=== PATIENT | female | born 1955 | race Caucasian/White ===

== ENCOUNTER 2016-12-24 09:16 | Day surgery (SDC) | payer MEDICAID ==
[~2016-12-24 09:16] MED LIST: Lactated Ringers 1,000 ML IV SCH; Sodium Chloride 0.9% 10 ML Syringe FLUSH PRN
[2016-12-24] MEDS ORDERED: fentaNYL 100 MCG/2 ML SDV ONE (10:12)
[2016-12-24] MEDS ORDERED: Midazolam 1 MG/ML 2 ML SDV ONE (10:13)
[2016-12-24] MEDS ORDERED: Propofol 200 MG/20 ML SDV ONE ×2 (10:13→11:51)
[2016-12-24 12:59] VITALS: BP 122/71
--- NOTE | 2016-12-24 14:48 | OR ---
DATE OF SURGERY: 12/24/2016. REFERRING PROVIDER: Rolo Acosta M.D. PREOPERATIVE DIAGNOSIS: History of colon polyps. Last colonoscopy in March 2011. POSTOPERATIVE DIAGNOSES: 1. A 2 mm polyp at 55 cm, removed with cold forceps. 2. Floppy redundant colon, but otherwise normal. PROCEDURE: Colonoscopy with polypectomy x1 using cold forceps. SURGEON: Aron Dooley M.D. ANESTHESIA: Monitored anesthesia care. BOWEL PREP: Fair but did require lots of suctioning. Maris calderon a 61-year-old female was brought to the endoscopy suite after discussing risks and benefits of the procedure. Informed consent was obtained for conscious sedation and colonoscopy with or without biopsy and/or polypectomy. We also discussed possibility of missed lesions. Pre-procedure exam was unremarkable. IV, oxygen, and monitors were placed. The patient was placed in the left lateral decubitus position. Sedation was administered and a digital rectal exam was performed which was unremarkable. Colonoscope was passed into the rectum and slowly advanced all the way to the cecum. Cecum was viewed and photographed. The colonoscope was slowly withdrawn and the mucosa was closed observed in a direct circumferential manner. The ascending colon was unremarkable. The transverse colon was unremarkable. The descending colon was remarkable for 2 mm polyp at 55 cm from the anal verge, removed with cold forceps. The sigmoid colon was unremarkable. Retroflexion was performed and rectal mucosa was unremarkable. Scope was removed. The patient tolerated the procedure well. The patient was monitored until that baseline status. Discharge instructions were reviewed and the patient was discharged in good condition. COMPLICATIONS: None. TOTAL TIME: 25 minutes. ESTIMATED BLOOD LOSS: Less than 1 mL. RECOMMENDATIONS/FOLLOW-UP: We will await results of path report to determine ideal followup interval. We will have the patient hold her aspirin for 3 days to limit any chance of bleeding. We would like to kindly thank Dr. Acosta for this referral. DMB: 12/24/2016 12:48:19 MODL: 12/24/2016 14:28:19 /[id number]
--- NOTE | 2016-12-24 17:05 | OR ---
SURGERY DATE: 12/24/2016. REFERRING PROVIDER: Dr. Acosta. PRE-OPERATIVE DIAGNOSES: 1. History of dysphagia, mainly upper. The patient did have previous normal barium swallow done in May 2016. 2. Left upper quadrant abdominal pain. POST-OPERATIVE DIAGNOSES: 1. 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 Cold biopsies taken from 4 different levels, total of 8 bites using the cold forceps. 2. Mild appearing chronic gastritis. Antral biopsy x2 bites taken to check for H. pylori as well as path. PROCEDURE: EGD with cold biopsies x2 sites as noted above. Cold forceps used. SURGEON: Aron Dooley M.D. ANESTHESIA: Monitored anesthesia care. Maris is a 61-year-old female who was brought to the endoscope suite after discussion of risks and benefits (including but not limited to reaction to medication, bleeding, infection, aspiration, perforation). Informed consent was obtained for monitored anesthesia care and esophagogastroduodenoscopy along with possible biopsy and/or dilatation. Pre-procedure exam including oral cavity was unremarkable. IV, oxygen, and monitors were placed. Patient was placed in the left lateral position and sedation was administered. A bite block was placed gently and scope lightly lubricated and passed through the bite block and over the tongue. Hypopharynx and vocal cords were visualized and unremarkable. Scope was passed through the distal part of the esophagus and Z-line was noted about 10 cm above the GE junction. There appeared to be about a 10 cm stretch of probable Jin's esophagus to this area. Prior to scope removal total of 8 bites were taken from 4 different levels of this stretch of probable Jin's. The scope was advanced into the stomach and gastric tello was suctioned. Pylorus was identified and intubated and then the scope was advanced to the third portion of the duodenum. The second and third portions of the duodenum were unremarkable. The duodenal bulb was visualized and unremarkable. The scope was brought back into the stomach. The pylorus and the antrum were remarkable for some mild chronic appearing gastritis. Antral biopsy x2 bites taken for path and H. pylori. The scope was then retroflexed to visualize the angularis, fundus, body, and cardia which were unremarkable. The stomach was desufflated of air and then the scope was slowly withdrawn, and the esophagus was closely visualized during withdrawal all the way into the posterior pharynx. In the upper esophagus there was an area of heterotopic type mucosa. Cold biopsy x2 bites was taken of this area and sent for path. The patient tolerated the procedure well and went to recovery in stable condition. The patient was monitored until at baseline status. Findings and discharge instructions were reviewed and the patient was discharged in good condition. COMPLICATIONS: None TOTAL TIME: 10 minutes ESTIMATED BLOOD LOSS: 1-2 mL. RECOMMENDATIONS/FOLLOW-UP: We will await results of path report to determine the need for any followup. I will place the patient on omeprazole 40 mg daily. I will also have hold her aspirin for at least 3 days to decrease any chance of bleeding. I would like to kindly thank Dr. Acosta for this referral. DMB: 12/24/2016 12:53:00 MODL: 12/24/2016 16:57:12 /[id number] MTDD
== END 2016-12-24 13:30 | disposition home or self-care (01) ==
LOC: VM.SDS 09:16
PROVIDERS: ATTEND Family Medicine
DX: Z12.11 Encounter for screening for malignant neoplasm of colon (principal); K63.5 Polyp of colon; K22.70 Barrett's esophagus without dysplasia; Z86.010 Personal history of colon polyps; K31.9 Disease of stomach and duodenum, unspecified; G45.9 Transient cerebral ischemic attack, unspecified; F41.9 Anxiety disorder, unspecified; I10 Essential (primary) hypertension; I73.9 Peripheral vascular disease, unspecified; E87.6 Hypokalemia; E55.9 Vitamin D deficiency, unspecified; Z79.82 Long term (current) use of aspirin; Z79.899 Other long term (current) drug therapy; Z79.2 Long term (current) use of antibiotics; Z90.710 Acquired absence of both cervix and uterus; Z98.890 Other specified postprocedural states; F17.210 Nicotine dependence, cigarettes, uncomplicated
CPT/HCPCS: 43239; 45380; J2250; J2704; J3010; J7120

== ENCOUNTER 2023-01-21 08:27 | Observation (INO) | payer MEDICAID, MEDICARE ==
[2023-01-21] MEDS ORDERED: Sodium Chloride 0.9% 1,000 ML IV ONE (09:37)
[2023-01-21] MEDS ORDERED: fentaNYL 50 MCG/ML SDV IVPUSH ONE (09:39)
[2023-01-21] MEDS ORDERED: Naloxone 0.4 MG/ML SDV IVPUSH PRN (09:39)
[2023-01-21 09:42] LABS: BASOPHILS PERCENT AUTO 0.1 % (0.2-1.2); HEMATOCRIT 40.4 % (33.0-47.0); HEMOGLOBIN 14.5 g/dL (12.0-16.0); IMMATURE GRAN ABSOLUTE AUTO 0.02 x10^3/uL (0.00-0.07); LYMPHOCYTES ABSOLUTE AUTO 1.9 x10^3/uL (1.0-4.8); LYMPHOCYTES PERCENT AUTO 21.8 % (25.0-50.0); MEAN CORPUSCULAR HEMOGLOBIN 30.9 pg (26.0-32.0); MEAN CORPUSCULAR HGB CONC 35.9 g/dL (32.0-36.0); MONOCYTES ABSOLUTE AUTO 0.8 x10^3/uL (0.0-0.8); MONOCYTES PERCENT AUTO 9.1 % (2.0-11.0); NEUTROPHILS ABSOLUTE AUTO 5.9 x10^3/uL (1.8-7.7); NEUTROPHILS PERCENT AUTO 68.8 % (50.0-80.0); PLATELET COUNT,PLT 306 x10^3/uL (130-400); WHITE BLOOD CELL COUNT,WBC 8.6 x10^3/uL (4.0-10.0)
[2023-01-21 10:07] LABS: A/G RATIO 1.11; ALANINE AMINOTRANSFERASE,ALT 47 U/L (14-59); ALBUMIN 4.1 g/dL (3.4-5.0); ALKALINE PHOSPHATASE 79 U/L (46-116); ASPARTATE AMNIOTRANSFERASE,AST 39 U/L (15-37); BILIRUBIN TOTAL 0.6 mg/dL (0.2-1.0); BLOOD UREA NITROGEN,BUN 8 mg/dL (7-18); CALCIUM 9.6 mg/dL (8.5-10.1); CARBON DIOXIDE,CO2 26 mmol/L (21-32); CHLORIDE,CL 84 mmol/L (98-107); CREATININE 0.9 mg/dL (0.55-1.02); GLUCOSE RANDOM 140 mg/dL (70-99); LIPASE 27 U/L (19-71); POTASSIUM,K 3.1 mmol/L (3.5-5.1); PROTEIN TOTAL,TP 7.8 g/dL (6.4-8.2)
[2023-01-21 10:08] LABS: ANION GAP 14.1 mmol/L (5-15); C-REACTIVE PROTEIN < 0.50 mg/dL (<=0.50); ESTIMATED GFR 71 mL/min (>=60); SODIUM,NA 121 mmol/L (136-145)
[2023-01-21 10:32] LABS: APPEARANCE,URINE CLEAR (CLEAR); BILIRUBIN,URINE NEGATIVE (NEGATIVE); COLOR,URINE YELLOW (YELLOW); GLUCOSE,URINE NEGATIVE (NEGATIVE); KETONES,URINE 15 mg/dL (NEGATIVE); LEUKOCYTE ESTERASE,URINE NEGATIVE (NEGATIVE); NITRITE,URINE NEGATIVE (NEGATIVE); OCCULT BLOOD,URINE TRACE-LYSED (NEGATIVE); PROTEIN,URINE NEGATIVE (NEGATIVE); UROBILINOGEN,URINE 0.2 EU/dL (0.2)
[2023-01-21 10:34] LABS: AMPHETAMINES SCREEN, URINE NEGATIVE (NEGATIVE); BARBITURATE SCREEN,URINE NEGATIVE (NEGATIVE); BENZODIAZEPINES SCREEN,URINE NEGATIVE (NEGATIVE); BUPRENORPHINE SCREEN,URINE NEGATIVE (NEGATIVE); COCAINE METABOLITES,URINE NEGATIVE (NEGATIVE); METHADONE SCREEN, URINE NEGATIVE (NEGATIVE); METHAMPHETAMINE SCREEN, URINE NEGATIVE (NEGATIVE); OXYCODONE SCREEN,URINE NEGATIVE (NEGATIVE); PCP SCREEN,URINE NEGATIVE (NEGATIVE); THC SCREEN,URINE 50 NG/ML POSITIVE (NEGATIVE)
[2023-01-21 10:42] LABS: BACTERIA,URINE RARE /HPF (NOT SEEN); MUCUS,URINE NOT SEEN /LPF (NOT SEEN); RBC,URINE 0-5 /HPF (NOT SEEN); SQUAMOUS EPITHELIAL CELLS,UR RARE /HPF (NOT SEEN); WBC,URINE 0-5 /HPF (NOT SEEN)
[2023-01-21] MEDS ORDERED: Iopamidol 612 MG/ML 100 ML Bottle IVPUSH ONE (10:42)
[2023-01-21] MEDS: Sodium Chloride 0.9% 1,000 ML IV SCH (11:30)
[2023-01-21] MEDS ORDERED: cloNIDine 0.1 MG Tab PO ONE (12:56)
[2023-01-21] MEDS ORDERED: Labetalol 20 MG/4 ML Syringe IVPUSH ONE (14:16)
[2023-01-21 14:55] LABS: BLOOD UREA NITROGEN,BUN 6 mg/dL (7-18); CALCIUM 8.7 mg/dL (8.5-10.1); CARBON DIOXIDE,CO2 24 mmol/L (21-32); CHLORIDE,CL 93 mmol/L (98-107); CREATININE 0.7 mg/dL (0.55-1.02); GLUCOSE RANDOM 118 mg/dL (70-99); POTASSIUM,K 3.2 mmol/L (3.5-5.1)
[2023-01-21 14:57] LABS: ANION GAP 15.2 mmol/L (5-15); ESTIMATED GFR 96 mL/min (>=60); SODIUM,NA 129 mmol/L (136-145)
[2023-01-21] MEDS ORDERED: Acetaminophen 325 MG Tab PO PRN (16:05)
[2023-01-21] MEDS ORDERED: Ondansetron 4 MG Tab.DIS PO PRN (16:05)
[2023-01-21] MEDS ORDERED: Sodium Chloride 0.9% 10 ML Syringe FLUSH PRN (16:05)
[2023-01-21] MEDS ORDERED: Ondansetron 4 MG/2 ML SDV IV PRN (16:05)
[2023-01-21] MEDS ORDERED: traMADol 50 MG Tab PO PRN (16:14)
[2023-01-21] MEDS ORDERED: Aspirin 325 MG Tab.EC PO PRN (16:14)
[2023-01-21] MEDS: Metoprolol Succinate 50 MG Tab.ER PO SCH ×2 (17:05→22:03)
[2023-01-21] MEDS ORDERED: Zolpidem 5 MG Tab PO SCH (21:00)
[2023-01-21] MEDS: Calcium Carbonate/Vitamin D3 1250 MG-5 MCG Tab PO SCH (22:04)
[2023-01-22] MEDS: Sodium Chloride 0.9% 1,000 ML IV SCH (01:21)
[2023-01-22] MEDS ORDERED: amLODIPine 5 MG Tab PO ONE ×2 (05:56→13:31)
[2023-01-22 06:49] LABS: CALCIUM 8.4 mg/dL (8.5-10.1); CREATININE 0.7 mg/dL (0.55-1.02); EST CRCL DRUG DOSING (CG) 49.34 mL/min
[2023-01-22 06:50] LABS: ANION GAP 11.6 mmol/L (5-15); POTASSIUM,K 2.6 mmol/L (3.5-5.1)
[2023-01-22] MEDS ORDERED: Potassium Chloride Riders 20 MEQ in Premix Bag 1 BAG IV ONE (07:49)
[2023-01-22] MEDS ORDERED: Potassium Chloride 10 MEQ Tab.ER PO SCH (08:00)
[2023-01-22] MEDS: Metoprolol Succinate 50 MG Tab.ER PO SCH (08:39)
[2023-01-22] MEDS: Cyclobenzaprine 10 MG Tab PO SCH ×2 (08:41→13:17)
[2023-01-22] MEDS: Calcium Carbonate/Vitamin D3 1250 MG-5 MCG Tab PO SCH (08:41)
[2023-01-22 12:14] LABS: ANION GAP 14.5 mmol/L (5-15); CALCIUM 9.1 mg/dL (8.5-10.1); CREATININE 0.6 mg/dL (0.55-1.02); EST CRCL DRUG DOSING (CG) 58.97 mL/min; POTASSIUM,K 3.5 mmol/L (3.5-5.1)
== END 2023-01-22 14:10 | disposition home or self-care (01) ==
LOC: VM.ED 08:27 → VM.MS 14:25
PROVIDERS: ADMIT Physician Assistant Medical; ATTEND Physician Assistant Medical
DX: I16.0 Hypertensive urgency (principal); E87.1 Hypo-osmolality and hyponatremia; I12.9 Hypertensive chronic kidney disease with stage 1 through stage 4 chronic kidney disease, or unspecified chronic kidney disease; N18.31 Chronic kidney disease, stage 3a; E78.00 Pure hypercholesterolemia, unspecified; F41.9 Anxiety disorder, unspecified; F17.210 Nicotine dependence, cigarettes, uncomplicated; Z90.710 Acquired absence of both cervix and uterus; Z79.82 Long term (current) use of aspirin; Z79.899 Other long term (current) drug therapy; Z88.8 Allergy status to other drugs, medicaments and biological substances
CPT/HCPCS: 36415; 71260; 74019; 74177; 80048; 80053; 80305-QW; 81001; 83690; 85025; 86140; 96361; 96365; 96374; 96375; 99223; 99239; 99285-25; A9270-GY; G0378; J3010; J3480; J3490; J7030; Q9967